=== PATIENT | female | born 1930 | race Hispanic/Latino ===

== ENCOUNTER 2017-11-22 19:05 | Emergency (ER) | payer MEDICARE, OTHER ==
--- NOTE | 2017-11-22 20:22 | Emergency Department Report ---
ED Female HPI - General Chief complaint: Abdominal Pain Stated complaint: URINARY RETENTION Time Seen by Provider: 11/22/17 20:21 Source: patient, EMS Mode of arrival: Wheelchair Limitations: No Limitations - History of Present Illness Initial comments: Patient presents with inability to urinate since yesterday evening. She has lower abdominal pressure she also has decreased appetite. Fully catheter was placed after arrival, with approximately 350 mL of clear urine drained, and she still has some moderate residual discomfort. She has not had a fever chills or diaphoresis. Past medical history significant for heart failure, COPD, atrial fibrillation, diabetes mellitus. Onset/Timin -: Gradual, days(s) Radiation: non-radiating, suprapubic Severity scale (0 -10): 5 Quality: aching Consistency: constant Improves with: none Worsens with: none Are you Now?: No Associated Symptoms: denies other symptoms - Related Data Sexually active: No Previous Rx's Medication Instructions Recorded Last Taken Type Sulfamethoxazole/Trimethoprim 1 each PO BID #14 tablet 11/23/17 Unknown Rx [Bactrim DS TAB] Allergies Allergy/AdvReac Type Severity Reaction Status Date / Time No Known Allergies Allergy Unverified 11/22/17 19:30 ED Review of Systems ROS: Stated complaint: URINARY RETENTION Other details as noted in HPI Comment: All other systems reviewed and negative Constitutional: denies: chills, fever, malaise, weakness Eyes: denies: eye pain, eye discharge, vision change ENT: denies: ear pain, throat pain Respiratory: denies: cough, shortness of breath, wheezing Cardiovascular: denies: chest pain, palpitations Endocrine: no symptoms reported Gastrointestinal: abdominal pain (suprapubic area of abdomen) Genitourinary: other (urinary retention, inability to urinate) Musculoskeletal: denies: back pain, joint swelling, arthralgia Skin: denies: rash, lesions Neurological: denies: headache, weakness, paresthesias Psychiatric: denies: anxiety, depression ED Past Medical Hx - Past Medical History Hx Congestive Heart Failure: Yes Hx Diabetes: Yes Hx COPD: Yes Additional medical history: chronic back pain, I.B.S, A.fib - Social History Smoking Status: Never Smoker Substance Use Type: None - Medications Home Medications: Home Medications Medication Instructions Recorded Confirmed Last Taken Type Sulfamethoxazole/Trimethoprim 1 each PO BID #14 tablet 11/23/17 Unknown Rx [Bactrim DS TAB] ED Physical Exam - General Limitations: No Limitations General appearance: in no apparent distress - Head Head exam: Present: atraumatic, normocephalic - Eye Eye exam: Present: PERRL, EOMI - ENT ENT exam: Present: normal exam - Neck Neck exam: Present: normal inspection. Absent: tenderness - Respiratory Respiratory exam: Present: normal lung sounds bilaterally. Absent: respiratory distress - GI/Abdominal GI/Abdominal exam: Present: soft, tenderness ([id number] tender suprapubic area, no rebound or guarding). Absent: guarding, rebound - External exam: Present: other (Zavala catheter in place, draining clear urine) - Extremities Exam Extremities exam: Present: normal inspection ED Course Vital Signs 11/22/17 11/22/17 19:30 20:04 Temperature 97.6 F Pulse Rate 96 H Respiratory 18 18 Rate Blood Pressure 158/65 O2 Sat by Pulse 99 Oximetry ED Medical Decision Making - Lab Data Result diagrams: 11/22/17 21:18 11/22/17 20:41 - Medical Decision Making Patient has had acute urinary retention, but no signs of acute infection. She did have significant amount of retained urine, 700 mL total, without clearcut cause. We will remove Zavala catheter, as patient is currently inpatient in involuntary commitment, but will cover her with antibiotics while she is awaiting urologic follow-up. She should have follow-up at the beginning of the week, by urologist, with removal of bag, and further care as needed. She also has a mild hyponatremia, with a sodium of 127, but with no prior visits for comparison. She is currently asymptomatic, I suspect this is likely chronic, but there are no other significant metabolic abnormalities. She is stable for discharge. - Differential Diagnosis urinary retention, urinary tract infection Critical Care Time: No Critical care attestation.: If time is entered above; I have spent that time in minutes in the direct care of this critically ill patient, excluding procedure time. ED Disposition Clinical Impression: Acute urinary retention Disposition: -01 TO HOME OR SELFCARE Is pt being admited?: No Does the pt Need Aspirin: No Condition: Stable Instructions: Abdominal Pain (ED) Additional Instructions: We have treated you for urinary retention today. We have taken the catheter out today, which he may have a recurrence of retention, which will require you to return to the emergency department if you have any continued symptoms. Take Bactrim twice daily to prevent infections. Have recheck by urologist in 3-4 days. You may resume other prior activities. Prescriptions: Sulfamethoxazole/Trimethoprim [Bactrim DS TAB] 1 each PO BID #14 tablet Referrals: PRIMARY CARE, [Primary Care Provider] - 3-5 Days Time of Disposition: 00:21
[2017-11-22] MEDS ORDERED: ULTRAM PO ONE (20:31)
[2017-11-22 21:06] LABS: BUN/Creatinine Ratio 16; Blood Urea Nitrogen 8 mg/dL (7-17); Calcium 8.9 mg/dL (8.4-10.2); Hemolysis Index 40
[2017-11-22 21:31] LABS: Hematocrit 28.8 % (30.3-42.9); Mean Corpuscular HGB Conc 35 % (30-34); Mean Corpuscular Hemoglobin 31 pg (28-32); Mean Corpuscular Volume 89 fl (79-97); Platelet Count 195 K/mm3 (140-440); Red Blood Count 3.25 M/mm3 (3.65-5.03)
[2017-11-22 22:08] LABS: Bilirubin,Urine NEG (Negative); Blood,Urine SM (Negative); Color,Urine Straw (Yellow); Hyaline Casts,Urine 1 /LPF; Mucus,Urine FEW /HPF; Protein,Urine <15 mg/dL mg/dL (Negative); Urobilinogen,Urine < 2.0 mg/dL (<2.0); WBC,Urine < 1.0 /HPF (0.0-6.0)
[2017-11-22 22:20] LABS: Band Neutrophils # (Manual) 0.2 K/mm3; Basophils % (Manual) 0 % (0.0-1.8); Eosinophils % (Manual) 0 % (0.0-4.3); Total Cells Counted 100
[2017-11-22 22:21] LABS: Platelet Estimate Consistent w Auto; RBC Morphology Normal
[2017-11-23] MEDS ORDERED: BACTRIM DS ONE (00:35)
[2017-11-23] MEDS ORDERED: BACTRIM DS PO ONE ×2 (00:35→07:33)
[2017-11-23 01:39] VITALS: BP 142/62
== END 2017-11-23 02:38 | disposition home or self-care (01) ==
LOC: ED 19:05
DX: R31.9 Hematuria, unspecified (principal); I50.9 Heart failure, unspecified; E11.9 Type 2 diabetes mellitus without complications; J44.9 Chronic obstructive pulmonary disease, unspecified; M54.9 Dorsalgia, unspecified; I48.91 Unspecified atrial fibrillation
CPT/HCPCS: 36415; 51702; 80048; 81001; 85007; 85025